=== PATIENT | male | born 1950 | race Caucasian/White ===

== ENCOUNTER 2018-04-03 09:43 | Day surgery (SDC) | payer MEDICARE ==
[2018-04-03] MEDS ORDERED: PROPOFOL 10 MG/ML VIAL IV ONE (09:44)
[2018-04-03] MEDS ORDERED: LIDOCAINE 2% MDV (20MG/ML) 20ML VIAL IV ONE (09:44)
--- NOTE | 2018-04-03 17:00 | Operative Note ---
DATE OF SURGERY: 04/03/2018 REFERRING PROVIDER: ALANIS Schofield PREOPERATIVE DIAGNOSIS: Colon cancer screening, average risk. POSTOPERATIVE DIAGNOSIS: Normal exam. OPERATION: COLONOSCOPY, initial screening. Preparation Quality: Excellent. Estimated Blood Loss: None. Samples Obtained: None. PROCEDURE: After informed consent was obtained, the patient was placed in the left lateral decubitus position in the endoscopy suite, sedated and monitored by the Department of Anesthesia. Digital rectal exam was unremarkable. A well-lubricated PCF-190 colonoscope was inserted into the rectum and advanced to the cecum. The ileocecal valve, appendiceal orifice, cecum, ascending colon, transverse colon, descending colon, sigmoid colon, and rectum were free of inflammatory changes, mass lesions or polyps. Forward and J-turn views of the rectum and anorectum were unremarkable. The endoscope was straightened, the rectal ampulla deflated and the endoscope was removed. RECOMMENDATIONS: I would suggest the patient resume his medications and diet. Given his average risk and negative exam and excellent prep, I would recommend a repeat exam in 10 years. As always, thank you for allowing me to participate in the health care of your patients. CC: ALANIS Schofield
== END 2018-04-03 11:08 | disposition home or self-care (01) ==
LOC: HOP 09:43
PROVIDERS: ATTEND Internal Medicine Gastroenterology
DX: Z12.11 Encounter for screening for malignant neoplasm of colon (principal)
CPT/HCPCS: 00812; G0121